=== PATIENT | female | born 1940 | race Caucasian/White ===

== ENCOUNTER 2018-04-13 14:37 | Emergency (ER) | payer MEDICARE ==
[~2018-04-13] VITALS: Ht 170.2 cm; Wt 86.7 kg
[2018-04-13 14:45] VITALS: BP 149/82
[2018-04-13 15:21] LABS: BASOPHILS # (AUTO) 0.07 x10^3/uL (0-0.1); BASOPHILS % (AUTO) 1 % (0-1); EOSINOPHILS # (AUTO) 0.25 x10^3/uL (0-0.4); EOSINOPHILS % (AUTO) 3 % (1-7); LYMPHOCYTES # (AUTO) 2.49 x10^3/uL (1-3.4); LYMPHOCYTES % (AUTO) 33 % (22-44); MD NO; MEAN CORPUSCULAR HEMOGLOBIN 32.3 pg (27.0-34.8); MEAN CORPUSCULAR HGB CONC 33.6 g/dL (32.4-35.8); MEAN PLATELET VOLUME 7.7 fL (7.4-10.4); MONOCYTES # (AUTO) 0.62 x10^3/uL (0.2-0.8); MONOCYTES % (AUTO) 8 % (2-9); NEUTROPHILS % (AUTO) 54 % (42-75); PLATELET COUNT 247 x10^3/uL (130-400); RED BLOOD COUNT 4.66 x10^6/uL (3.82-5.3); RED CELL DISTRIBUTION WIDTH 14.4 % (9.6-15.2)
[2018-04-13 15:27] LABS: ALANINE AMINOTRANSFERASE 31 U/L (12-78); ALBUMIN 3.8 g/dL (3.4-5.0); ANION GAP 9 mmol/L (5-15); CHLORIDE 104 mmol/L (98-107); CREATININE 0.72 mg/dL (0.55-1.02)
[2018-04-13 15:29] LABS: ALKALINE PHOSPHATASE 130 U/L (45-117); BILIRUBIN,TOTAL 0.8 mg/dL (0.2-1.0); TOTAL PROTEIN 7.9 g/dL (6.4-8.2)
[2018-04-13 16:06] LABS: MICROSCOPIC NOT IND
[2018-04-13 16:09] LABS: CULTURE INDICATED? NO
== END 2018-04-13 17:24 | disposition home or self-care (01) ==
LOC: ED 17:05
DX: G30.8 Other Alzheimer's disease (principal); F02.81 Dementia in other diseases classified elsewhere, unspecified severity, with behavioral disturbance
CPT/HCPCS: 36415; 70450; 71045; 80053; 81003; 83605; 85025; 87040; 93005; 99285

== ENCOUNTER 2019-04-05 01:29 | Emergency (ER) | payer MEDICARE ==
[~2019-04-05] VITALS: Ht 177.8 cm; Wt 77.3 kg
[2019-04-05 01:38] VITALS: BP 143/76
--- NOTE | 2019-04-05 01:51 | NUR ---
THIS RN AND DR. CHANCE AT TO AMBULATE PT. AND ATTEMPT TO FIGURE OUT SOURCE OF PAIN. PT. WAS ABLE TO WALK OUT TO [place] WITH HAND-HELD ASSIST AND DENIES ANY PAIN. PT. PLEASANTLY CONFUSED. PER EMS SON IS EN ROUTE.
--- NOTE | 2019-04-05 01:53 | NUR ---
PT BIB EMS FROM [facility]. EMS REPORTS PT HAD A FALL AT CARE FACILITY AT ABOUT 0100. FACILITY REPORT PT FINE 5 MIN BEFORE FALL AND WAS FOUND SITTING ON FLOOR. NO LOC, REPORTS SHE DIDNT HIT HER HEAD. PT IS BASELINE AOX1 WITH HX OF DEMENTIA. PT C/O OF LOWER BACK PAIN WHILE AT FACILITY, NOW REPORTS NO DISCOMFORT. PTS SKIN INTACT, NO LUMPS OR BRUISING NOTED. PT PUT ON MONITORING. SAFETY MEASURES IN PLACE.
--- NOTE | 2019-04-05 02:26 | NUR ---
CALLED DARYA OSEI AT [facility] AND INFORMED HER OF POC.
--- NOTE | 2019-04-05 02:37 | NUR ---
PT SON AT INFORMED OF POC. SON TO TAKE PT BACK TO [facility]. PT ABLE TO AMBULATE 5 STEPS TO WHEELCHAIR TO SAFELY GET TO D/C DESK. ALL BELONGINGS WITH PT. ALL QUESTIONS ANSWERED.
== END 2019-04-05 02:41 | disposition home or self-care (01) ==
LOC: ED 01:51
DX: M54.5 Low back pain (principal); W18.30XA Fall on same level, unspecified, initial encounter; Y93.89 Activity, other specified; Y92.009 Unspecified place in unspecified non-institutional (private) residence as the place of occurrence of the external cause; Y99.8 Other external cause status
CPT/HCPCS: 99283

== ENCOUNTER 2019-04-27 17:18 | Emergency (ER) | payer MEDICARE ==
[~2019-04-27] VITALS: Ht 175.3 cm; Wt 93.0 kg
--- NOTE | 2019-04-27 17:39 | NUR ---
PT HERE FOR WITNESSED GLF, PT NOTED TO HIT BACK OF HEAD. PT WITH BASELINE DEMENTIA, A0X0. PT TO BP, CONT PULSE OX
--- NOTE | 2019-04-27 18:31 | NUR ---
STRAIGHT CATH COMPLETED, WALKED TO LAB, VSS, NAD NOTED
--- NOTE | 2019-04-27 18:49 | NUR ---
report from tu meeks
[2019-04-27 18:52] LABS: MICROSCOPIC INDICATED
[2019-04-27 18:53] LABS: CULTURE INDICATED? YES
[2019-04-27 19:18] LABS: ALBUMIN 2.7 g/dL (3.4-5.0); ANION GAP 7 mmol/L (5-15); CALCIUM 9.1 mg/dL (8.5-10.1); CHLORIDE 109 mmol/L (98-107); CREATININE 0.67 mg/dL (0.55-1.02)
[2019-04-27] MEDS ORDERED: FOSFOMYCIN 3 GM PACKET PO ONE (19:30)
[2019-04-27] MEDS ORDERED: NITROFURANTOIN (MACROBID) 100 MG CAPSULE PO ONE (19:30)
[2019-04-27 19:35] LABS: BASOPHILS # (AUTO) 0.04 x10^3/uL (0-0.1); BASOPHILS % (AUTO) 1 % (0-1); EOSINOPHILS # (AUTO) 0.16 x10^3/uL (0-0.4); EOSINOPHILS % (AUTO) 2 % (1-7); LYMPHOCYTES # (AUTO) 2.13 x10^3/uL (1-3.4); LYMPHOCYTES % (AUTO) 25 % (22-44); MD NO; MEAN CORPUSCULAR HEMOGLOBIN 31.6 pg (27.0-34.8); MEAN CORPUSCULAR HGB CONC 32.8 g/dL (32.4-35.8); MEAN CORPUSCULAR VOLUME 96.2 fL (80-100); MONOCYTES # (AUTO) 0.52 x10^3/uL (0.2-0.8); MONOCYTES % (AUTO) 6 % (2-9); NEUTROPHILS # (AUTO) 5.59 x10^3/uL (1.8-6.8); NEUTROPHILS % (AUTO) 66 % (42-75); PLATELET COUNT 410 x10^3/uL (130-400); RED BLOOD COUNT 4.98 x10^6/uL (3.82-5.3); RED CELL DISTRIBUTION WIDTH 14.4 % (9.6-15.2)
[2019-04-27] MEDS ORDERED: FOSFOMYCIN 3 GM PACKET ONE (19:50)
[2019-04-27 20:07] VITALS: BP 118/44
--- NOTE | 2019-04-27 21:39 | NUR ---
SON JAMMIE CALLED AND HE IS ON HIS WAY TO [facility]AN[facility] WINDOW PT AND TAKE HER BACK TO [facility]
== END 2019-04-27 22:32 | disposition home or self-care (01) ==
LOC: ED 20:43
DX: S09.90XA Unspecified injury of head, initial encounter (principal); N39.0 Urinary tract infection, site not specified; F03.90 Unspecified dementia, unspecified severity, without behavioral disturbance, psychotic disturbance, mood disturbance, and anxiety; Z87.891 Personal history of nicotine dependence; W18.30XA Fall on same level, unspecified, initial encounter; Y93.89 Activity, other specified; Y92.009 Unspecified place in unspecified non-institutional (private) residence as the place of occurrence of the external cause; Y99.8 Other external cause status
CPT/HCPCS: 36415; 80048; 81001; 82040; 85025; 87086; 99283